=== PATIENT | male | born 1980 | race African-American/Black ===

== ENCOUNTER 2019-01-25 11:00 | Emergency (ER) | payer MEDICAID, OTHER ==
[~2019-01-25] VITALS: Ht 172.7 cm; Wt 77.1 kg
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
[2019-01-25 11:10] VITALS: BP 120/84
[2019-01-25 12:27] LABS: EOSINOPHILS % (AUTO) 0.6 % (0.0-3.0); HEMATOCRIT 38.5 % (42.0-52.0); HEMOGLOBIN 12.2 G/DL (14.2-18.0); LYMPHOCYTES % (AUTO) 13.9 % (20.0-45.0); MEAN CORPUSCULAR VOLUME 79 FL (80-99); MONOCYTES % (AUTO) 3.4 % (1.0-10.0); NEUTROPHILS % (AUTO) 81.2 % (45.0-75.0); PLATELET COUNT 505 K/UL (150-450); RED BLOOD COUNT 4.87 M/UL (4.70-6.10); RED CELL DISTRIBUTION WIDTH 15.1 % (11.6-14.8)
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
[2019-01-25 12:50] LABS: ANION GAP 8 mmol/L (5-15); BLOOD UREA NITROGEN 20 mg/dL (7-18); CALCIUM 8.7 MG/DL (8.5-10.1); CARBON DIOXIDE 28 MMOL/L (21-32); CHLORIDE 107 MMOL/L (98-107); CREATININE 0.9 MG/DL (0.55-1.30); POTASSIUM 3.6 MMOL/L (3.5-5.1); SODIUM 143 MMOL/L (136-145)
[2019-01-25 12:55] LABS: ALANINE AMINOTRANSFERASE 29 U/L (12-78); ALBUMIN 3.4 G/DL (3.4-5.0); ALBUMIN/GLOBULIN RATIO 0.8 (1.0-2.7); ALKALINE PHOSPHATASE 91 U/L (46-116); ASPARTATE AMINO TRANSFERASE 23 U/L (15-37); BILIRUBIN,TOTAL 0.2 MG/DL (0.2-1.0)
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
[2019-01-25] MEDS ORDERED: Ketorolac 30mg Inj IV ONE (13:30)
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
== END 2019-01-25 14:04 | disposition left against medical advice (07) ==
LOC: EDBD 11:00 → EMR 11:40
DX: S02.2XXA Fracture of nasal bones, initial encounter for closed fracture (principal); S00.03XA Contusion of scalp, initial encounter; Z59.0 Homelessness; F31.9 Bipolar disorder, unspecified; Z88.0 Allergy status to penicillin; Y00.XXXA Assault by blunt object, initial encounter; Y92.9 Unspecified place or not applicable
CPT/HCPCS: 36415; 70450; 70486; 80053; 85025; 85610; 85730; 99284

== ENCOUNTER 2019-02-24 05:37 | Emergency (ER) | payer OTHER ==
[~2019-02-24] VITALS: Ht 172.7 cm; Wt 81.6 kg
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
[2019-02-24] MEDS ORDERED: NKM (05:46)
[2019-02-24 05:55] VITALS: BP 112/80
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
[2019-02-24 06:02] VITALS: BP 112/80
--- NOTE | 2019-02-24 06:03 | NUR ---
Note mauro in EDM - 02/24/19 at 0648 by F[facility]EL ED Nurse Note: pt cleared to be d/c per ERMD, pt walked out without discharge paperwork and left with all belongings, refused to state where he is going, pt stated "Fuck you all". pt resp even and unlabored on RA, ambulatory w/ steady gait.
--- NOTE | 2019-02-24 06:03 | NUR ---
ED Nurse Note: CHARGE NURSE NOTIFIED, ERMD NOTIFIED, SECURITY PRESENT WHILE PT WALKING OUT.
--- NOTE | 2019-02-24 06:03 | NUR ---
ELOPEMENT: pt eloped, pt left with all belongings, pt refused care and walked out stating "Fuck you all." Pt resp even and unlabored on RA, -n/v/d, ambulatory w/ steady gait.
== END 2019-02-24 06:03 | disposition left against medical advice (07) ==
LOC: EDBD 05:37 → EMR 05:50
DX: Z04.89 Encounter for examination and observation for other specified reasons (principal); F31.9 Bipolar disorder, unspecified; Z88.0 Allergy status to penicillin
CPT/HCPCS: 99282